=== PATIENT | male | born 1990 | race Caucasian/White ===

== ENCOUNTER 2020-08-14 21:26 | Inpatient (IN) | payer OTHER ==
[~2020-08-14] VITALS: Ht 188 cm; Wt 71.4 kg
[2020-08-15 02:05] LABS: HEMOGLOBIN 14.3 gm/dl (14.0-17.5); RED BLOOD COUNT 4.6 M/UL (4.20-5.50); WHITE BLOOD COUNT 7.3 K/UL (4.5-11.0)
[2020-08-15 02:21] LABS: BUN/CREATININE RATIO 8 (0-10)
[2020-08-15] MEDS ORDERED: OLANZAPINE2.5 MG PO (11:14)
[2020-08-15] MEDS ORDERED: CELEXA20 MG PO (11:15)
[2020-08-15 22:22] LABS: HEMOGLOBIN 13.4 gm/dl (14.0-17.5); RED BLOOD COUNT 4.29 M/UL (4.20-5.50)
[2020-08-15 22:39] LABS: BUN/CREATININE RATIO 9 (0-10)
[2020-08-16 05:19] LABS: HEMOGLOBIN 14.2 gm/dl (14.0-17.5); RED BLOOD COUNT 4.56 M/UL (4.20-5.50)
[2020-08-16 05:20] LABS: WHITE BLOOD COUNT 11.7 K/UL (4.5-11.0)
[2020-08-16 05:31] LABS: BUN/CREATININE RATIO 11 (0-10)
[2020-08-17 03:59] LABS: HEMOGLOBIN 13.2 gm/dl (14.0-17.5); RED BLOOD COUNT 4.27 M/UL (4.20-5.50); WHITE BLOOD COUNT 10.3 K/UL (4.5-11.0)
[2020-08-17 04:18] LABS: BUN/CREATININE RATIO 15 (0-10)
--- NOTE | 2020-08-17 13:00 | NUR ---
PATIENT REFUSED TO GET FOR ORDERED STANDING XRAYS OF T2-6. DR. POLO NOTIFIED. WILL ATTEMPT AGAIN TOMORROW PER MD.
[2020-08-18 05:46] LABS: HEMOGLOBIN 12.7 gm/dl (14.0-17.5); RED BLOOD COUNT 4.1 M/UL (4.20-5.50); WHITE BLOOD COUNT 7.9 K/UL (4.5-11.0)
[2020-08-18 06:09] LABS: BUN/CREATININE RATIO 11 (0-10)
[2020-08-20] MEDS ORDERED: CELEXA20 MG PO (13:25)
--- NOTE | 2020-08-20 17:33 | NUR ---
MOTHER HERE TO TAKE PT. HOME AND PT. BEING VERBALLY ABUSIVE TOWARD STAFF STATING HE DIDN'T GET HIS PAIN MEDICINE FAST ENOUGH AFTER PT GIVEN OXYCODONE. MOTHER UPSET STATING SHE DOESN'T KNOW WHAT TO DO BECAUSE THE SON IS TELLING HER TO LEAVE. WHILE MOTHER TALKING TO NURSE THE PT. SENDS THE MOTHER A TEXT STATING GET THE "FUCK AWAY FROM ME [place]", MOTHER SHOWS TEXT TO NURSE AND LEAVES STATING i CAN'T DO THIS, SEND HIM TO A HOMELESS INTERMEDIATE OR WHATEVER, I JUST CANT DO THIS.
[2020-09-02] MEDS ORDERED: BACTRIM 400-801 EACH PO (13:33)
== END 2020-08-21 12:39 | disposition home or self-care (01) | DRG 460 ==
LOC: M/S 21:26 → CCU 08-15 16:40 → M/S 08-16 15:14
PROVIDERS: Internal Medicine; Orthopaedic Surgery; ADMIT Internal Medicine
PROC: 0PB40ZZ Excision of Thoracic Vertebra, Open Approach (ICD-10-PCS; 2020-08-15)
PROC: 0RG7071 Fusion of 2 to 7 Thoracic Vertebral Joints with Autologous Tissue Substitute, Posterior Approach, Posterior Column, Open Approach (ICD-10-PCS; principal; 2020-08-15 14:00)
DX: S22.040A Wedge compression fracture of fourth thoracic vertebra, initial encounter for closed fracture (principal); E44.0 Moderate protein-calorie malnutrition; F25.0 Schizoaffective disorder, bipolar type; F17.210 Nicotine dependence, cigarettes, uncomplicated; W01.198A Fall on same level from slipping, tripping and stumbling with subsequent striking against other object, initial encounter; Y92.9 Unspecified place or not applicable; F19.10 Other psychoactive substance abuse, uncomplicated; F15.10 Other stimulant abuse, uncomplicated; M40.204 Unspecified kyphosis, thoracic region
CPT/HCPCS: 36415; 72070; 72072; 76000; 80048; 82550; 82553; 84484; 85025; 85027; 85610; 86850; 86900; 86901; 97116-GP-CQ; 97162; 97166; 97530-GP-CQ; 97535; C1713; C1762; C1781; J0690; J1040; J1100; J1170; J1650; J1885; J2001; J2250; J2270; J2405; J2704; J3010; J3370; J7040; J7120

== ENCOUNTER 2020-08-23 02:04 | Emergency (ER) | payer OTHER ==
[~2020-08-23 02:04] MED LIST: CELEXA20 MG PO; OLANZAPINE2.5 MG PO
[2020-08-23 02:40] LABS: HEMOGLOBIN 14.5 gm/dl (14.0-17.5); RED BLOOD COUNT 4.63 M/UL (4.20-5.50); WHITE BLOOD COUNT 14.3 K/UL (4.5-11.0)
[2020-08-23 03:05] LABS: BUN/CREATININE RATIO 23 (0-10)
[2020-08-23] MEDS ORDERED: OMNICEF 300 MG300 MG PO (06:54)
[2020-08-23] MEDS ORDERED: VIBRAMYCIN100 MG PO (06:54)
[2020-08-23] MEDS ORDERED: PERCOCET 5-3251 EACH PO (06:54)
[2020-08-23] MEDS ORDERED: IBUPROFEN600 MG PO (06:54)
[2020-09-02] MEDS ORDERED: BACTRIM 400-801 EACH PO (13:33)
== END 2020-08-23 08:35 | disposition home or self-care (01) ==
LOC: ER1 02:04
PROVIDERS: Emergency Medicine
DX: J18.9 Pneumonia, unspecified organism (principal); Z20.822 Contact with and (suspected) exposure to COVID-19
CPT/HCPCS: 0240U; 71045; 80053; 80307; 81001; 82550; 82553; 83605; 83690; 83735; 83874; 84484; 85025; 85379; 85652; 86140; 87040; 93005; 96374; 96375; 99285; J0696; J1885; J2270; J2405; Q9967

== ENCOUNTER 2020-08-25 12:43 | Observation (INO) | payer OTHER ==
[~2020-08-25] VITALS: Ht 188 cm; Wt 73.9 kg
[~2020-08-25 12:43] MED LIST changes: +IBUPROFEN600 MG PO; +OMNICEF 300 MG300 MG PO; +PERCOCET 5-3251 EACH PO; +VIBRAMYCIN100 MG PO
[2020-08-25 13:58] LABS: RED BLOOD COUNT 4.47 M/UL (4.20-5.50)
[2020-08-25 13:59] LABS: WHITE BLOOD COUNT 10.3 K/UL (4.5-11.0)
[2020-08-25 14:35] LABS: BUN/CREATININE RATIO 17 (0-10)
[2020-08-25] MEDS ORDERED: PERCOCET 5/325 T1 EA PO (19:51)
--- NOTE | 2020-08-26 00:29 | NUR ---
PCP [facility] [place], [place]
[2020-08-26 04:59] LABS: HEMOGLOBIN 13.4 gm/dl (14.0-17.5); RED BLOOD COUNT 4.33 M/UL (4.20-5.50); WHITE BLOOD COUNT 12.2 K/UL (4.5-11.0)
[2020-08-26 06:05] LABS: BUN/CREATININE RATIO 15 (0-10)
[2020-08-27 03:47] LABS: HEMOGLOBIN 13.5 gm/dl (14.0-17.5); RED BLOOD COUNT 4.37 M/UL (4.20-5.50); WHITE BLOOD COUNT 12.7 K/UL (4.5-11.0)
[2020-08-27 04:04] LABS: BUN/CREATININE RATIO 15 (0-10)
[2020-08-27] MEDS ORDERED: PERCOCET 7.5-31 EACH PO (11:53)
[2020-08-27] MEDS ORDERED: AUGMENTIN 875-1 EACH PO (11:53)
--- NOTE | 2020-08-27 13:04 | NUR ---
INSTRUCTED PATIENT ON IMPORTANCE OF TAKING MEDS ORDERED. MEDS AT LOCAL PHARMACY. VERBALIZED UNDERSTANDING. ASHWIN BONDS R.N.
[2020-09-02] MEDS ORDERED: BACTRIM 400-801 EACH PO (13:33)
== END 2020-08-27 13:22 | disposition home or self-care (01) ==
LOC: ER1 12:43 → M/S 17:53 → CDU 17:53 → M/S 18:04
PROVIDERS: Physician Assistant; Physician Assistant Medical; ADMIT Internal Medicine
DX: T84.84XA Pain due to internal orthopedic prosthetic devices, implants and grafts, initial encounter (principal); G89.28 Other chronic postprocedural pain; J18.9 Pneumonia, unspecified organism; F31.9 Bipolar disorder, unspecified; F20.9 Schizophrenia, unspecified; F41.9 Anxiety disorder, unspecified; F43.10 Post-traumatic stress disorder, unspecified; F17.290 Nicotine dependence, other tobacco product, uncomplicated; Z20.822 Contact with and (suspected) exposure to COVID-19; Z98.1 Arthrodesis status; Z79.899 Other long term (current) drug therapy; Z76.5 Malingerer [conscious simulation]; Y83.1 Surgical operation with implant of artificial internal device as the cause of abnormal reaction of the patient, or of later complication, without mention of misadventure at the time of the procedure
CPT/HCPCS: 36415; 72129; 80048; 80053; 83605; 83735; 85025; 85652; 86140; 87040; 96365; 96366; 96374; 96375; 96376; 99284; G0378; J0696; J2270; J2405; J3370; J7030; J7070; Q9967; U0002

== ENCOUNTER 2020-08-30 01:44 | Emergency (ER) | payer OTHER ==
[~2020-08-30 01:44] MED LIST changes: +AUGMENTIN 875-1 EACH PO; +PERCOCET 5/325 T1 EA PO; +PERCOCET 7.5-31 EACH PO
[2020-08-30 02:56] LABS: HEMOGLOBIN 13.4 gm/dl (14.0-17.5); RED BLOOD COUNT 4.34 M/UL (4.20-5.50); WHITE BLOOD COUNT 13.2 K/UL (4.5-11.0)
[2020-09-02] MEDS ORDERED: BACTRIM 400-801 EACH PO (13:33)
== END 2020-08-30 03:50 | disposition home or self-care (01) ==
LOC: ER1 01:44 → CDU 02:54 → ER1 02:54
PROVIDERS: Emergency Medicine
DX: M96.842 Postprocedural seroma of a musculoskeletal structure following a musculoskeletal system procedure (principal); Z20.822 Contact with and (suspected) exposure to COVID-19
CPT/HCPCS: 85025; 85652; 86140; 99284; U0002

== ENCOUNTER 2020-09-05 10:20 | Observation (INO) | payer OTHER ==
[~2020-09-05] VITALS: Ht 188 cm; Wt 76.2 kg
[~2020-09-05 10:20] MED LIST changes: +BACTRIM 400-801 EACH PO
[2020-09-05 12:35] LABS: HEMOGLOBIN 13.2 gm/dl (14.0-17.5); RED BLOOD COUNT 4.34 M/UL (4.20-5.50); WHITE BLOOD COUNT 10.1 K/UL (4.5-11.0)
[2020-09-05 12:57] LABS: BUN/CREATININE RATIO 10 (0-10)
[2020-09-06 03:04] LABS: HEMOGLOBIN 11.7 gm/dl (14.0-17.5); WHITE BLOOD COUNT 10.8 K/UL (4.5-11.0)
[2020-09-06 03:11] LABS: RED BLOOD COUNT 3.89 M/UL (4.20-5.50)
[2020-09-06 03:28] LABS: BUN/CREATININE RATIO 14 (0-10)
[2020-09-08 11:47] LABS: HEMOGLOBIN 11.3 gm/dl (14.0-17.5); RED BLOOD COUNT 3.77 M/UL (4.20-5.50)
[2020-09-08 11:48] LABS: WHITE BLOOD COUNT 6.2 K/UL (4.5-11.0)
[2020-09-08 12:07] LABS: BUN/CREATININE RATIO 14 (0-10)
[2020-09-09 06:07] LABS: HEMOGLOBIN 11.3 gm/dl (14.0-17.5); RED BLOOD COUNT 3.71 M/UL (4.20-5.50); WHITE BLOOD COUNT 6.9 K/UL (4.5-11.0)
[2020-09-09 07:21] LABS: BUN/CREATININE RATIO 15 (0-10)
[2020-09-10 06:02] LABS: HEMOGLOBIN 11.7 gm/dl (14.0-17.5); RED BLOOD COUNT 3.87 M/UL (4.20-5.50); WHITE BLOOD COUNT 7.6 K/UL (4.5-11.0)
[2020-09-10 06:27] LABS: BUN/CREATININE RATIO 16 (0-10)
--- NOTE | 2020-09-10 12:11 | NUR ---
RN PULLED PATIENT'S HYDROCODONE TO GIVE HIM FOR PAIN BUT THE PATIENT WANTED OXYCODONE INSTEAD. RN WASTED MEDCATION WITH RAFAEL HAYNES AND ADMINISTERED PATIENT OXYCODONE INSTEAD.
[2020-09-11 04:20] LABS: HEMOGLOBIN 11.3 gm/dl (14.0-17.5); RED BLOOD COUNT 3.79 M/UL (4.20-5.50); WHITE BLOOD COUNT 7.9 K/UL (4.5-11.0)
[2020-09-11 04:40] LABS: BUN/CREATININE RATIO 16 (0-10)
[2020-09-11] MEDS ORDERED: BACTRIM 400-801 EACH PO (10:02)
[2020-09-11] MEDS ORDERED: POLYETHYLENE GL17 GM PO (10:12)
[2020-09-11] MEDS ORDERED: HYDROCODON-ACE1 EAC6 PO ×2 (10:14→19:26)
--- NOTE | 2020-09-11 18:34 | NUR ---
DR Forrester was notified and stated pt was free to go , noted geovanny in plce was seen by Brad , mother picked up pt and he was d/c vias w/c
== END 2020-09-11 18:23 | disposition home or self-care (01) ==
LOC: MED SURG 4 10:47
PROVIDERS: Orthopaedic Surgery; Physician Assistant Medical; ADMIT Internal Medicine
PROC: 0KBF0ZZ Excision of Right Trunk Muscle, Open Approach (ICD-10-PCS; 2020-09-05)
PROC: 0KBG0ZZ Excision of Left Trunk Muscle, Open Approach (ICD-10-PCS; principal; 2020-09-05 18:12)
DX: M96.842 Postprocedural seroma of a musculoskeletal structure following a musculoskeletal system procedure (principal); M96.840 Postprocedural hematoma of a musculoskeletal structure following a musculoskeletal system procedure; G89.18 Other acute postprocedural pain; K59.00 Constipation, unspecified; F31.9 Bipolar disorder, unspecified; F20.9 Schizophrenia, unspecified; F41.9 Anxiety disorder, unspecified; F15.10 Other stimulant abuse, uncomplicated; Z20.822 Contact with and (suspected) exposure to COVID-19; Z98.1 Arthrodesis status; Z79.899 Other long term (current) drug therapy; Z87.891 Personal history of nicotine dependence; Y83.8 Other surgical procedures as the cause of abnormal reaction of the patient, or of later complication, without mention of misadventure at the time of the procedure
CPT/HCPCS: 96365; 96366; 96375; 36415; 71045; 80048; 80053; 80307; 81001; 83735; 85025; 85027; 85652; 86140; 87040; 87070; 87205; 89051; 96374; 96376; G0378; G0379; J0690; J1100; J1170; J2001; J2250; J2270; J2405; J2704; J3010; J3370; J7120; U0002

== ENCOUNTER 2020-10-21 11:42 | Emergency (ER) | payer OTHER ==
[~2020-10-21 11:42] MED LIST changes: +HYDROCODON-ACE1 EAC6 PO; +POLYETHYLENE GL17 GM PO
[2020-10-21] MEDS ORDERED: NAPROXEN500 MG PO (15:04)
== END 2020-10-21 15:11 | disposition home or self-care (01) ==
LOC: ER1 11:42
DX: R51.9 Headache, unspecified (principal)
CPT/HCPCS: 70450; 96372; 99284; J1885

== ENCOUNTER 2021-07-07 02:26 | Emergency (ER) | payer OTHER ==
[~2021-07-07 02:26] MED LIST changes: +AMOXICILLIN500 MG PO; +NAPROXEN500 MG PO; +NORFLEX 100 MG100 MG PO; +PENVEE K 500 M500 MG PO
== END 2021-07-07 06:10 | disposition home or self-care (01) ==
LOC: ER1 02:26
DX: R51.9 Headache, unspecified (principal); H92.02 Otalgia, left ear
CPT/HCPCS: 70450; 96372; 99284; J1885

== ENCOUNTER 2021-07-17 08:51 | Emergency (ER) | payer OTHER ==
[2021-07-17] MEDS ORDERED: AMOXICILLIN500 MG PO (09:14)
[2021-07-17] MEDS ORDERED: IBUPROFEN600 MG PO (09:14)
== END 2021-07-17 11:00 | disposition home or self-care (01) ==
LOC: ER1 08:51
DX: K08.89 Other specified disorders of teeth and supporting structures (principal)
CPT/HCPCS: 99283